=== PATIENT | male | born 1990 | race Caucasian/White ===

== ENCOUNTER 2018-04-07 08:44 | Emergency (ER) | payer OTHER ==
[~2018-04-07] VITALS: Ht 185.4 cm; Wt 104.3 kg
--- NOTE | 2018-04-07 08:59 | NUR ---
ED Nurse Note: Pt came into ER due to a lump on his left armpit. A + O x4. Ambulatory. Pt states that he went to another hospital 1 month ago for the same problem. Took atb and ibuprofen and it was ineffective. Complainig of 9/10 pain on the left armpit. Non radiating.
[2018-04-07 09:00] VITALS: BP 130/85
[2018-04-07] MEDS ORDERED: Morphine Sulfate 4mg/ml Inj (IV/IM USE ONLY) IVP ONE (09:15)
[2018-04-07] MEDS ORDERED: Isovue-300 100ml vial INJ PRN (09:15)
--- NOTE | 2018-04-07 09:31 | NUR ---
ED Nurse Note: Blood has been collected and sent to lab. Started IV site. Consent signed for CT.
[2018-04-07 09:39] LABS: BASOPHILS % (AUTO) 1.4 % (0.0-2.0); EOSINOPHILS % (AUTO) 3.9 % (0.0-3.0); HEMATOCRIT 52.7 % (42.0-52.0); HEMOGLOBIN 17.8 G/DL (14.2-18.0); LYMPHOCYTES % (AUTO) 15.8 % (20.0-45.0); MEAN CORPUSCULAR VOLUME 88 FL (80-99); MONOCYTES % (AUTO) 8.8 % (1.0-10.0); NEUTROPHILS % (AUTO) 70.1 % (45.0-75.0); PLATELET COUNT 238 K/UL (150-450); RED BLOOD COUNT 6.01 M/UL (4.70-6.10); RED CELL DISTRIBUTION WIDTH 11.2 % (11.6-14.8); WHITE BLOOD COUNT 9.7 K/UL (4.8-10.8)
--- NOTE | 2018-04-07 09:42 | NUR ---
ED Nurse Note: CALLED CT. NO ANSWER. WILL CALL BACK IN 5 MINUTES.
[2018-04-07 09:48] LABS: ANION GAP 9 mmol/L (5-15); BLOOD UREA NITROGEN 10 mg/dL (7-18); CALCIUM 9.3 MG/DL (8.5-10.1); CARBON DIOXIDE 28 MMOL/L (21-32); CHLORIDE 104 MMOL/L (98-107); CREATININE 0.9 MG/DL (0.55-1.30); POTASSIUM 4.1 MMOL/L (3.5-5.1); SODIUM 141 MMOL/L (136-145)
[2018-04-07 09:53] LABS: ALANINE AMINOTRANSFERASE 23 U/L (12-78); ALBUMIN 3.8 G/DL (3.4-5.0); ALBUMIN/GLOBULIN RATIO 0.9 (1.0-2.7); ALKALINE PHOSPHATASE 116 U/L (46-116); ASPARTATE AMINO TRANSFERASE 13 U/L (15-37); BILIRUBIN,TOTAL 0.5 MG/DL (0.2-1.0)
--- NOTE | 2018-04-07 09:54 | Emergency Room Report ---
History of Present Illness General Chief Complaint: Skin Rash/Abscess Source: Patient Present Illness HPI 28-year-old male presents ED for evaluation. Patient states he has a "lump" in his left armpit 4 months. States he was seen at [facility] last month for this. Had ultrasound and blood work which were "normal". Patient was discharged on antibiotics. Patient states that symptoms have not improved. Pain is throbbing, 10 out of 10, radiating towards the left side of chest. Patient states he does not have a PMD. Denies smoking or drug use. Denies fevers or chills. Denies cough. No other aggravating relieving factors. Denies any other associated symptoms Allergies: Coded Allergies: No Known Allergies (Unverified , 04/07/18) Patient History Past Medical History: none Past Surgical History: none Pertinent Family History: none Social History: Denies: smoking, alcohol use, drug use Immunizations: UTD Reviewed Nursing Documentation: PMH: Agreed; PSxH: Agreed Nursing Documentation-PMH Past Medical History: No Stated History Review of Systems All Other Systems: negative except mentioned in HPI Physical Exam Vital Signs Date Time Temp Pulse Resp B/P (MAP) Pulse Ox O2 Delivery O2 Flow Rate FiO2 04/07/18 08:49 98.2 81 21 135/82 95 Room Air Sp02 EP Interpretation: reviewed, normal General Appearance: no apparent distress, alert, GCS 15, non-toxic Head: normocephalic Eyes: bilateral eye normal inspection, bilateral eye PERRL ENT: normal ENT inspection Neck: full range of motion, supple/symm/no masses Respiratory: lungs clear, normal breath sounds, speaking full sentences, other - L sided chest wall pain Cardiovascular #1: regular rate, rhythm, no edema Gastrointestinal: normal inspection Rectal: deferred Genitourinary: no CVA tenderness Musculoskeletal: normal inspection Neurologic: alert, oriented x3, responsive, motor strength/tone normal, sensory intact, speech normal Psychiatric: judgement/insight normal, memory normal, mood/affect normal, no suicidal/homicidal ideation Skin: normal inspection Lymphatic: axilla node tender (L), adenopathy - L axilla Medical Decision Making Diagnostic Impression: Primary Impression: Axillary mass Qualified Codes: R22.32 - Localized swelling, mass and lump, left upper limb ER Course Hospital Course 28 yo M presents to ED c/o L axillary pain/swelling x months. did not respond to antibiotics initially Differential diagnosis includes- abscess, cellulitis, lymphadenopathy Clinical course Patient placed on stretcher. After initial history and physical I ordered labs , IV fluids, pain medications and CT scan Labs - no leukocytosis, electrolytes ok, LFTs normal, UA unremarkable CT scan shows L axillary mass - infectious vs inflammatory vs neoplastic Discussed findings with patient. Discussed the consideration of cancer if the lymphadenopathy did not resolve with antibiotics. On CT chest there is no evidence of any pulmonary mass. We will do another round of antibiotics with pain meds. However I do discussed that patient see a PMD for outpatient workup, including a biopsy Patient does not have a PMD. I'll provide referrals There is no family history of cancer. No smoking. I feel this is a highly complex case requiring extensive working including EKG/ Rhythm strip, Xray/CT/US, Blood/urine lab work, repeat exams while in ED, and administration of strong opiates/narcotics for pain control, admission to hospital or close patient follow up. Diagnosis - axillary mass Stable and discharged to home with Rx Motrin, Tramadol, Augmentin. Followup with PMD. Return to ED if symptoms recur or worsen Labs Test 04/07/18 09:32 White Blood Count 9.7 K/UL (4.8-10.8) Red Blood Count 6.01 M/UL (4.70-6.10) Hemoglobin 17.8 G/DL (14.2-18.0) Hematocrit 52.7 % (42.0-52.0) Mean Corpuscular Volume 88 FL (80-99) Mean Corpuscular Hemoglobin 29.7 PG (27.0-31.0) Mean Corpuscular Hemoglobin Concent 33.8 G/DL (32.0-36.0) Red Cell Distribution Width 11.2 % (11.6-14.8) Platelet Count 238 K/UL (150-450) Mean Platelet Volume 7.2 FL (6.5-10.1) Neutrophils (%) (Auto) 70.1 % (45.0-75.0) Lymphocytes (%) (Auto) 15.8 % (20.0-45.0) Monocytes (%) (Auto) 8.8 % (1.0-10.0) Eosinophils (%) (Auto) 3.9 % (0.0-3.0) Basophils (%) (Auto) 1.4 % (0.0-2.0) Sodium Level 141 MMOL/L (136-145) Potassium Level 4.1 MMOL/L (3.5-5.1) Chloride Level 104 MMOL/L (98-107) Carbon Dioxide Level 28 MMOL/L (21-32) Anion Gap 9 mmol/L (5-15) Blood Urea Nitrogen 10 mg/dL (7-18) Creatinine 0.9 MG/DL (0.55-1.30) Estimat Glomerular Filtration Rate > 60 mL/min (>60) Glucose Level 87 MG/DL (74-106) Calcium Level 9.3 MG/DL (8.5-10.1) Total Bilirubin 0.5 MG/DL (0.2-1.0) Aspartate Amino Transf (AST/SGOT) 13 U/L (15-37) Alanine Aminotransferase (ALT/SGPT) 23 U/L (12-78) Alkaline Phosphatase 116 U/L (46-116) Total Protein 7.8 G/DL (6.4-8.2) Albumin 3.8 G/DL (3.4-5.0) Globulin 4.0 g/dL Albumin/Globulin Ratio 0.9 (1.0-2.7) CT/MRI/US Diagnostic Results CT/MRI/US Diagnostic Results : Imaging Test Ordered: CT Chest Impression 7.5 x 5.5 x 5.0 cm left axillary mass likely infectious or inflammatory node. Neoplasm is not excluded. Please correlate clinically. Suggest follow-up. Last Vital Signs Date Time Temp Pulse Resp B/P (MAP) Pulse Ox O2 Delivery O2 Flow Rate FiO2 04/07/18 09:00 98.1 87 22 130/85 96 Room Air Status: improved Disposition: HOME, SELF-CARE Condition: Stable Scripts Tramadol Hcl* (ULTRAM*) 50 Mg Tablet 50 MG ORAL Q6H PRN for For Pain for 3 Days, TAB 0 Refills Prov: Ki Bender MD 04/07/18 Ibuprofen* (MOTRIN*) 600 Mg Tablet 600 MG ORAL Q8H PRN for For Pain, #30 TAB 0 Refills Prov: Ki Bender MD 04/07/18 Amoxicillin/Potassium Clav 875-125* (AUGMENTIN 875-125 TABLET*) 1 Each Tablet 1 TAB ORAL TWICE A DAY, #14 TAB Prov: Ki Bender MD 04/07/18 Referrals: NOT CHOSEN IPA/,REFERRING (PCP) Ki Bender MD Apr 07, 2018 09:54
--- NOTE | 2018-04-07 09:55 | NUR ---
ED Nurse Note: Pt went down to CT.
--- NOTE | 2018-04-07 10:17 | NUR ---
ED Nurse Note: Pt came back from CT. Awaiting results.
--- NOTE | 2018-04-07 10:31 | Diagnostic Imaging Report ---
Indication: Left axillary mass and pain Technique: Continuous helical transaxial imaging of the chest was obtained from the thoracic inlet to the upper abdomen after intravenous nonionic contrast administration. Coronal 2-D reformats were also obtained. Automatic Exposure Control was utilized. Total Dose length Product (DLP): 1230.[address] Dose Index Volume (CTDIvol): 24.1 mGy Comparison: none Findings: There is a 7.5 x 4.9 x 5.0 cm ovoid mass in the left axilla likely an inflammatory or neoplastic lymph node. Please correlate clinically. The mediastinum and mario appear normal. No other nodes are identified. No abnormal fluid collections identified. Visualized upper abdomen appears normal. The lungs are clear. No pleural or pericardial effusion identified. IMPRESSION: 7.5 x 5.5 x 5.0 cm left axillary mass likely infectious or inflammatory node. Neoplasm is not excluded. Please correlate clinically. Suggest follow-up. The CT scanner at [facility] is accredited by the [employer] and the scans are performed using dose optimization techniques as appropriate to a performed exam including Automatic Exposure control.
[2018-04-07] MEDS ORDERED: IBUPROFEN600 MG ORAL (10:51)
[2018-04-07] MEDS ORDERED: AUGMENTIN 875-1 EAC1 ORAL (10:51)
[2018-04-07] MEDS ORDERED: TRAMADOL HCL50 MG ORAL (10:51)
[2018-04-07 10:59] VITALS: BP 129/79
--- NOTE | 2018-04-07 10:59 | NUR ---
ED Nurse Note: Pt is clear to be discharged by ERMD. Discharge paper and prescription given, pt verbalized understanding of discharge instruction. AOx4, VSS. Wristband and IV line removed. Pt ambulated out with steady gait with all belongings.
[2018-04-07 11:01] VITALS: BP 129/79
== END 2018-04-07 11:01 | disposition home or self-care (01) ==
LOC: EMR 09:15
DX: R22.32 Localized swelling, mass and lump, left upper limb (principal); R07.9 Chest pain, unspecified
CPT/HCPCS: 36415; 71260; 80053; 85025; 96374; 99284; J2270; Q9967